=== PATIENT | female | born 1970 | race Caucasian/White ===

== ENCOUNTER → 2016-10-15 | Day surgery (SDC) | payer MEDICARE ==
[~2016-10-15] VITALS: Ht 172.7 cm; Wt 70.5 kg
[~2016-10-15] MED LIST: *HYDROmorphone PF 1 MG VIAL PERIprocedural Use ONLY ONE; *MEPERIDINE 25 MG INJ VIAL PERIprocedural Use ONLY ONE; ABAT1INJ SQ; CHLORHEXIDINE GLUCONATE 2 % 1 PACK (2 CLOTHS) TOPICAL PRN; DILA8TAB4 PO; DULA0.5I SQ; ESZO1TAB PO; FENT25DI T-DERMAL; GABA600T PO; HYALURONIDASE/LIDOCAINE/EPINEPHRINE/BUPIVACAINE 4.5 ML SYR RIGHT EYE ONE; HYALURONIDASE/LIDOCAINE/EPINEPHRINE/BUPIVACAINE 6 ML SYR RIGHT EYE ONE; HYDR10TA65 PO; HYDR5TAB64 PO; HYDROCORTISONE SOD SUCCINATE 100 MG VIAL ONE; INSULIN HUMAN REGULAR 1,000 UNITS/10 ML VIAL SQ PRN; LACTATED RINGER'S 1000 ML IV PRN; LACTCHW3 CHEW; LEVO.2 PO; LIOT5TAB3 PO; LYRI100C PO; METOPROLOL TARTRATE 25 MG TAB PO PRN; MORPHINE SULFATE 4 MG/ML INJ ONE; ONDANSETRON HCL 4 MG/2 ML VIAL IV PUSH ONE; POVIDONE IODINE 5% (ANTISEPSIS KIT) 4 APPLICATIONS EACH NARE PRN; PROPOFOL 200 MG/20 ML AMP IV ONE; SODIUM CHLORID 0.9% 500 ML INJ 500 ML IV ONE; SODIUM CHLORID 0.9% 500 ML IV PRN; TETRACAINE 0.5% OPTH SOLN 4 ML BTL ONE; TOBRAMYCIN/DEXAMETHASONE OPTH OINT 3.5 GM TUBE ONE; TRAZ100T6 PO; VISCOAT OPHT IRRIG SOLN 0.75 ML SYRINGE RIGHT EYE ONE; VITA100021 IM
[2016-10-15 08:45] VITALS: BP 135/77; PULSE 99; RESP 16; TEMP 98.3; O2SAT 100
[2016-10-15] MEDS: PHENYLEPHRINE HCL 10% OPTH SOLN 5 ML BTL RIGHT EYE SCH ×3 (09:00→09:10)
[2016-10-15] MEDS: TROPICAMIDE 1% OPHT SOLN 15 ML BTL RIGHT EYE SCH ×3 (09:00→09:10)
[2016-10-15] MEDS: TETRACAINE 0.5% OPTH SOLN 4 ML BTL RIGHT EYE SCH ×3 (09:00→09:10)
[2016-10-15] MEDS: CYCLOPENTOLATE HCL 1% OPHT SOLN 2 ML BTL RIGHT EYE SCH ×3 (09:00→09:10)
[2016-10-15 11:00] VITALS: PULSE 104
--- NOTE | 2016-10-15 11:07 | PD.OP ---
Operative Report Date of Surgery: Oct 15, 2016 Preoperative Diagnosis: (1) Nuclear sclerotic cataract of right eye Postoperative Diagnosis: (1) Pseudophakia of right eye Procedure: phacoemulsification and intraocular lens implant right eye Anesthesia: General Surgeon: Ann-Marie Watts Program Scheduler(s): none Operation and Findings: Patient was consented for surgery, and taken back to the operating room. She was put under general anesthesia and prepped and draped in the usual sterile fashion for ophthalmic surgery. A wire lid speculum was placed in the right eye. A paracentesis incision was created at the 11 o'clock position on the limbus. Vision blue dye and viscoelastic was injected into the anterior chamber. The main incision was created at the 8 o'clock position on the limbus with a 2.4 mm keratome. A continuous curvilinear capsulorrhexis was made on the anterior lens capsule. Hydrodissection was used to separate the nucleus from the capsule. Phacoemulsification was used to remove the lens nucleus material. Irrigation and aspiration was used to remove the remaining cortical material. The lens implant ([id number]) was placed in the capsular bag. Viscoelastic was removed with irrigation and aspiration. The incisions were irrigated. A 10-0 nylon suture was placed on the paracentesis incision. TobraDex ointment, a patch, and shield were placed on the right eye. The patient was sent to PACU in stable condition. Ann-Marie Watts MD Oct 15, 2016 11:07
[2016-10-15 11:30] VITALS: PULSE 82; TEMP 98
[2016-10-15 11:50] VITALS: BP 115/81; PULSE 84; RESP 14; O2SAT 100
== END | disposition home or self-care (01) ==
LOC: PHSDC 08:29
PROVIDERS: ATTEND Ophthalmology
DX: H25.11 Age-related nuclear cataract, right eye (principal)
CPT/HCPCS: 00142; 66984; J1170; J1720; J2175; J2270; J2405; J7040; V2632